=== PATIENT | female | born 1980 | race Caucasian/White ===

== ENCOUNTER 2021-02-02 14:06 | Outpatient (CLI) | payer BC | END 2021-02-02 14:07 | disposition home or self-care (01) | LOC: CSHMAMMO 14:06 | PROVIDERS: ATTEND Obstetrics & Gynecology | DX: Z12.31 Encounter for screening mammogram for malignant neoplasm of breast (principal) | CPT/HCPCS: 77063; 77067 ==

== ENCOUNTER 2022-02-03 13:22 | Outpatient (CLI) | payer OTHER | END 2022-02-03 13:23 | disposition home or self-care (01) | LOC: CSHMAMMO 13:22 | PROVIDERS: ATTEND Obstetrics & Gynecology | DX: Z12.31 Encounter for screening mammogram for malignant neoplasm of breast (principal); N63.20 Unspecified lump in the left breast, unspecified quadrant | CPT/HCPCS: 77063; 77067 ==

== ENCOUNTER 2023-03-14 08:30 | Outpatient (CLI) | payer OTHER | END 2023-03-14 08:31 | disposition home or self-care (01) | LOC: CSHMAMMO 08:30 | PROVIDERS: ATTEND Obstetrics & Gynecology | DX: Z12.31 Encounter for screening mammogram for malignant neoplasm of breast (principal); Q83.9 Congenital malformation of breast, unspecified | CPT/HCPCS: 77063; 77067 ==

== ENCOUNTER 2023-03-29 08:12 | Outpatient (CLI) | payer OTHER | END 2023-03-29 08:13 | disposition home or self-care (01) | LOC: CSHMAMMO 08:12 | PROVIDERS: ATTEND Obstetrics & Gynecology | DX: Q83.9 Congenital malformation of breast, unspecified (principal); N63.21 Unspecified lump in the left breast, upper outer quadrant | CPT/HCPCS: G0279 ==

== ENCOUNTER → 2023-04-01 | Day surgery (SDC) | payer OTHER | LOC: CSHULT 12:49 | PROVIDERS: ATTEND Surgery | PROC: 0H9U3ZX Drainage of Left Breast, Percutaneous Approach, Diagnostic (ICD-10-PCS; principal; 2023-04-01) | DX: C50.412 Malignant neoplasm of upper-outer quadrant of left female breast (principal) | CPT/HCPCS: 19083; 88305; 88341; 88342 ==

== ENCOUNTER 2023-04-06 15:44 | Outpatient (CLI) | payer OTHER ==
[2023-04-06 17:30] LABS: Anion Gap 12 mmol/L (10-20); BUN (Urea Nitrogen) 9 mg/dL (7.0-18.7); Calc. Creatinine Clearance 0 mL/min (70-130); Calcium 9.2 mg/dL (7.8-10.44); Carbon Dioxide 27 mmol/L (22-29); Chloride 104 mmol/L (98-107); Estimated GFR 87; Glucose 102 mg/dL (70-105); Potassium 3.8 mmol/L (3.5-5.1); Sodium 139 mmol/L (136-145)
== END 2023-04-06 15:45 | disposition home or self-care (01) ==
LOC: CSHLAB 15:44
PROVIDERS: ATTEND Surgery
DX: Z01.818 Encounter for other preprocedural examination (principal); C50.912 Malignant neoplasm of unspecified site of left female breast
CPT/HCPCS: 80048; 93005; 93010

== ENCOUNTER 2023-04-07 07:34 | Day surgery (SDC) | payer OTHER ==
[2023-04-07] MEDS ORDERED: PROPOFOL 40 ML ONE (08:04)
[2023-04-07] MEDS ORDERED: Ketorolac Tromethamine 30 MG (1 mL) VIAL ONE (08:04)
[2023-04-07] MEDS ORDERED: Ondansetron PF 4 MG/2 ML Vial ONE (08:04)
[2023-04-07] MEDS ORDERED: Lidocaine 2% PF 5 ML VIAL ONE (08:04)
[2023-04-07] MEDS ORDERED: Dexamethasone 4 mg/ml Vial ONE (08:04)
[2023-04-07] MEDS ORDERED: fentaNYL 50 mcg/mL 1 mL Vial ONE ×4 (08:04→10:34)
[2023-04-07] MEDS ORDERED: Isosulfan Blue 50 MG/5 ML VIAL ONE (08:30)
[2023-04-07] MEDS ORDERED: Bupivacaine PF 0.5% 30 ML VIAL ONE (08:30)
[2023-04-07] MEDS ORDERED: EPINEPHrine 1 MG/ML VIAL ONE (08:30)
[2023-04-07] MEDS ORDERED: CEFAZOLIN 2 GM VIAL ONE (08:51)
[2023-04-07] MEDS ORDERED: Midazolam HCl 2 mg/2 ml Vial ONE (09:16)
[2023-04-07] MEDS ORDERED: HYDROcodone/Acetaminophen 5/325 mg Tablet PO PRN (11:29)
[2023-04-07] MEDS ORDERED: Acetaminophen 325 MG TAB PO PRN (11:29)
== END 2023-04-07 12:55 | disposition home or self-care (01) ==
LOC: CSHSDC 07:34
PROVIDERS: ATTEND Surgery
PROC: 0HB5XZX Excision of Chest Skin, External Approach, Diagnostic (ICD-10-PCS; principal; 2023-04-07)
PROC: 0HBU0ZZ Excision of Left Breast, Open Approach (ICD-10-PCS; principal; 2023-04-07)
DX: C50.912 Malignant neoplasm of unspecified site of left female breast (principal); N60.22 Fibroadenosis of left breast; I10 Essential (primary) hypertension
CPT/HCPCS: 76098; 78195; 88307; 88342; A9541; J0171; J0665; J1100; J1885; J2001; J2250; J2405; J2704; J3010; Q9968

== ENCOUNTER 2023-07-20 14:03 | Outpatient (CLI) | payer OTHER | END 2023-07-20 14:04 | disposition home or self-care (01) | LOC: CSHMAMMO 14:03 | PROVIDERS: ATTEND Internal Medicine | DX: Z13.820 Encounter for screening for osteoporosis (principal); C50.412 Malignant neoplasm of upper-outer quadrant of left female breast | CPT/HCPCS: 77080 ==

== ENCOUNTER 2024-11-07 10:18 | Outpatient (CLI) | payer BC | END 2024-11-07 10:19 | disposition home or self-care (01) | LOC: CSHMAMMO 10:18 | PROVIDERS: ATTEND Surgery | DX: Z09 Encounter for follow-up examination after completed treatment for conditions other than malignant neoplasm (principal); Z85.3 Personal history of malignant neoplasm of breast | CPT/HCPCS: 77066; G0279 ==

== ENCOUNTER 2024-11-12 08:21 | Outpatient (CLI) | payer BC | END 2024-11-12 08:22 | disposition home or self-care (01) | LOC: CSHMRI 08:21 | DX: C50.412 Malignant neoplasm of upper-outer quadrant of left female breast (principal); Z17.0 Estrogen receptor positive status [ER+] | CPT/HCPCS: C8908 ==